=== PATIENT | male | born 1960 | race Caucasian/White ===

== ENCOUNTER 2017-06-20 10:48 | Inpatient (IN) ==
--- NOTE | 2017-06-20 09:50 | Anesthesia Evaluation PreOp ---
Date of Encounter: 06/20/17 Time of Encounter: 11:16 - Past History Planned Operation: Robotic Left Partial Nephrectomy Cardiac History: Denies any Significant Hx Pulmonary History: Denies Any Significant HX [employer] [place] History: Denies Any Significant HX Other Medical History: Renal (renal mass) Anesthesia History: No Prior Anesthetic Complications, Past Anesthesia Alcohol Use: none Drug use: none Medications and Allergies No Known Home Drugs 06/20/17 [History] 3 Allergy/AdvReac Type Severity Reaction Status Date / Time No Known Allergies Allergy Verified 06/16/17 10:40 - Meds/Allergy Pre-op Review Medications Reviewed: Yes Allergies Reviewed: Yes Beta Blockers on Current Med List: No Anesthesia Results - Labs Laboratory Tests 06/16/17 06/16/17 10:51 10:51 WBC 6.3 Hgb 14.8 Hct 44.6 Plt Count 200 Sodium 138 Potassium 4.7 H BUN 15 Creatinine 1.13 Anesthesia Exam O2 Sat Height 1.75 m Height 1.75 m Weight 105.233 kg Weight 105.233 kg O2 Sat by Pulse Oximetry 97 Vital Signs Temp Pulse Resp BP Pulse Ox 98.7 F 74 18 139/98 97 06/20/17 11:05 06/20/17 11:05 06/20/17 11:05 06/20/17 11:05 06/20/17 11:05 Height: 5'9'' Weight: 232 lbs NPO (# of Hours): 8 Pain Scale: 0 Pain Scale Used: Numeric (1 - 10) - HEENT Pupil (Motor): EOMI Mallampati: II Teeth: Normal Oral Opening: Greater than 3 - [employer] [employer] [place] LOC: Oriented [employer] [place] Motor: Normal RUE, Normal LUE, Normal RLE, Normal LLE, Normal Face [employer] [place] Sensory: Normal: RUE, LUE, RLE, LLE, Face - Cardiac Rhythm: Regular Murmur: None - Pulmonary Breath Sounds: bilateral Clear Respiratory Effort: Symmetrical Anesthesia Assess/Plan ASA Score: 2 Modified Caryl Scale for Level of Consciousness: Cooperative, oriented, and tranquil Anesthetic Plan: General Monitoring Plan: Standard Monitors Recovery Plan: PACU
[2017-06-20] MEDS ORDERED: CeFAZolin Pre 2,000 MG/100 ML 2,000 MG/100 ML BAG IVPB ONE (11:43)
[2017-06-20] MEDS ORDERED: Ringers Solution, Lactated 1,000 ML IVC SCH ×2 (11:45→14:45)
[2017-06-20] MEDS ORDERED: Lidocaine -MPF 2% 2 ML VIAL ONE (12:05)
[2017-06-20] MEDS ORDERED: Neostigmine Methylsulfate 3 MG/3 ML SYRINGE ONE (12:05)
[2017-06-20] MEDS ORDERED: Dexamethasone 4 MG/ML VIAL ONE (12:05)
[2017-06-20] MEDS ORDERED: Ondansetron 4 MG/2 ML VIAL ONE (12:05)
[2017-06-20] MEDS ORDERED: *HR* FentaNYL (PF) 100 MCG/2 ML VIAL ONE ×4 (12:05→15:35)
[2017-06-20] MEDS ORDERED: *HR* Rocuronium Bromide 50 MG/5 ML VIAL ONE ×2 (12:05→14:37)
[2017-06-20] MEDS ORDERED: *HR* Propofol 200 MG/20 ML VIAL IVP ONE (12:06)
[2017-06-20] MEDS ORDERED: *HR* Midazolam HCl 2 MG/2 ML VIAL ONE (12:06)
[2017-06-20] MEDS ORDERED: Plasma-Lyte A (PH 7.4) 1,000 ML IVC SCH (12:30)
--- NOTE | 2017-06-20 12:40 | History & Physical Report ---
Date of Encounter: 06/20/17 Time of Encounter: 12:40 24 Hour HP Update - Instructions Instructions: If the History and Physical is less than 30 days old and was completed prior to A.M. admission and or procedure and has NOT been updated on calendar day of procedure please complete this update prior to performing procedure. - Update Patient reports changes in Medical Condition: No Changes in examination, assessment, or condition: No Changes in Medication: No Preop tests/diagnostics Reviewed: Yes Surgery Remains Indicated: Yes Consent for Planned Operative Procedure(s) Verified: Yes - Pre-Operative Checklist Preoperative Checklist Indicated: Yes Prophylactic Antibiotic Ordered: Yes Home Medications Include Beta Alessandra: No Is VTE Prophylaxis Indicated?: Yes
[2017-06-20] MEDS ORDERED: Bupivacaine-MPF 0.25% 10 ML VIAL ONE (12:45)
[2017-06-20] MEDS ORDERED: *HR* Promethazine 25 MG/ML VIAL IVP PRN (14:39)
[2017-06-20] MEDS ORDERED: *HR* Labetalol 20 MG/4 ML SYRINGE IVP PRN (14:39)
[2017-06-20] MEDS ORDERED: Ondansetron 4 MG/2 ML VIAL IVP ONE (14:39)
[2017-06-20] MEDS ORDERED: Mannitol 25% vial 12.5 GM/50 ML VIAL ONE (15:35)
[2017-06-20] MEDS ORDERED: *HR* HYDROmorphone 2 MG/ML SYRINGE ONE (16:29)
--- NOTE | 2017-06-20 17:03 | Operative Note ---
Date of procedure: 06/20/17 Pre-op diagnosis: Left renal mass Post-op diagnosis: same Procedure: Robotic assisted partial nephrectomy converted to nephrectomy Implants: 16 [place] moulton Complications: none Anesthesia: ISAIAHA Surgeon: Otis Pacheco Estimated blood loss (cc): 600 Specimen: left kidney, fat over renal mass Condition: stable Disposition: PACU Procedure in Detail: Indications: Jack is a 56-year-old man who presents with a left renal mass. He elected to undergo a left robotic partial nephrectomy. He was informed of the risks of the procedure which include but are not limited to bleeding, infection, injury to other structures, need for further procedures, urine leak, bowel injury, need for complete nephrectomy, need for open conversion, and the risk of anesthesia. He is willing to proceed. Procedure After informed consent was obtained the patient was brought back to the operating room and placed in the supine position. A timeout was performed. Gen. anesthesia was then administered and an endotracheal tube was placed. Appropriate IV access and arterial lines were obtained. He was then placed in the flank position. His left side was up. All pressure points were padded. He was well secured to the table. A Moulton catheter was placed. He was then prepped and draped in the usual sterile fashion. We then marked out our incision 2 fingerbreadths superior to the umbilicus and 2 fingerbreadths lateral to that. A 10 mm incision was then made. The Veress needle was introduced. 2 clicks were heard. It passed the water drop test. Insufflation was then initiated. Pressures were low consecutively. The abdomen was insufflated. Once the pressure was up to 15, we inserted the 12 mm laparoscopic port with the visual obturator and the 8 mm robotic camera. Entry was obtained into the abdomen. The bowel was surveyed below and there is no evidence of bowel injury. Robotic ports were then inserted inferior and lateral to the camera port and superior to the camera port. A 12 mm port was placed for the metallurgical laboratory assistant inferior to the umbilicus. The robot was docked. The bowel was reflected off the kidney along the white line of Toldt. There was a large amount of fat overlying the kidney. As I reflected the colon medially I did encounter a mesenteric blood vessel that bled. The blood vessel retracted back into the mesenteric fat. I cauterized around it and didn't notice any further bleeding. The mesentery did bleed somewhat throughout the case. The colon was reflected off the spleen. I was able to retract the colon medially and approached the area of the hilum. I identified the renal vein and renal artery and these were dissected out for future clamping. I then turned my attention to the fat overlying the renal mass. This was dissected off the kidney. It was then sent separately. The mass was quite exophytic. The dissection of the fat over top of the kidney did lead to some bleeding. There was a developing hematoma medial to the kidney and this was aspirated away. I then turned my attention to the hilum. It was difficult to identify the location of the previous dissection. In doing so I inadvertently injured the renal vein. I noted bleeding from it and at that point felt it would be best to proceed with a nephrectomy. The robot was undocked. I scrubbed in and extended the incision from the the robotic port which is subcostal and proceeded further subcostally. The subcutaneous tissue was dissected down using electrocautery. I was able to place my finger through the port cycle into the peritoneum. The fascia was then divided with cautery as was the rectus muscle. I entered the abdomen. I then placed the gelport. I inserted my hand into the kidney with a lap. The hematoma was swept away with a lap. I used a total of 4 laps to clear out all the hematoma. I identified the renal vein and saw the laceration which was then profusely bleeding. I inserted the stapler and stapled across the entire hilum. I then reinserted the stapler and took the ureter with it. The kidney was then placed in the specimen bag and removed through the GelPort. I then surveyed the area of the hilum and saw no further bleeding. The area near the mesentery was viewed and I didn't see any other bleeding. At this point I decided to remove the ports and close the wounds. The peritoneum from the GelPort was closed in a running fashion using an 0 Vicryl suture. The fascia was then closed in a running fashion using an 0 Vicryl suture. The skin was closed using Monocryl suture. The wounds were irrigated. Local anesthetic was infiltrated in the wounds. The fascia of the larger 12 mm ports were closed using a 2-0 Vicryl in an interrupted fashion. The skin from the port site wounds were closed using 4-0 Monocryl suture. Dermabond was applied to the wounds. The patient was then awakened from general anesthesia and brought to recovery room in good condition. All sponge, needle, and instrument counts were correct.
[2017-06-20] MEDS: *HR* HYDROmorphone (PF) 1 MG/ML SYRINGE IVP PRN ×4 (17:34→22:03)
--- NOTE | 2017-06-20 18:03 | Anesthesia Evaluation Post Op ---
Date of Encounter: 06/20/17 Time of Encounter: 18:02 - Vital Signs Vital Signs: Last Vital Signs Temp 98.3 F 06/20/17 17:46 Pulse 60 06/20/17 17:56 Resp 14 06/20/17 17:56 BP 128/84 06/20/17 17:56 Pulse Ox 99 06/20/17 17:56 - Lungs Lungs: Clear Ascult./Percussion - Airway Airway: Non-obstructed - Cardiovascular Regular Rate - Mental Status Mental Status: Alert & Oriented, Answers Appropriately - Pain Pain Scale: 3 - Nausea Vomiting Nausea Vomiting: Not Present - Hydration Hydration: NPO - Discharge PostOp Status: Transfer Patient to floor
[2017-06-20] MEDS ORDERED: Ondansetron 4 MG/2 ML VIAL IVP PRN (18:43)
[2017-06-20] MEDS ORDERED: *HR* Promethazine 25 MG/ML VIAL IV PRN (18:43)
[2017-06-20] MEDS ORDERED: Naloxone 0.4 MG/ML INJ IVP PRN (18:43)
[2017-06-20] MEDS ORDERED: Acetaminophen 325 MG TABLET PO PRN (18:43)
[2017-06-20] MEDS: 0.9 % Sodium Chloride 1,000 ML IVC SCH (19:43)
[2017-06-21] MEDS: ceFAZolin 2,000 MG in D5% in Water 100 ML IVPB SCH ×3 (00:39→16:00)
[2017-06-21] MEDS: *HR* HYDROmorphone (PF) 1 MG/ML SYRINGE IVP PRN ×5 (00:40→11:01)
[2017-06-21] MEDS: 0.9 % Sodium Chloride 1,000 ML IVC SCH ×2 (03:30→21:38)
[2017-06-21 06:45] LABS: Calcium 7.9 mg/dL (8.6-10.8); Potassium 5.1 mEq/L (3.5-4.5)
[2017-06-21 06:48] LABS: Basophils % 0.1 %; Hematocrit 33.9 % (37.5-50.1); Immature Granulocytes % 0.1 % (0-4); Lymphocytes # 0.9 K/mcL (0.6-4.6); Lymphocytes % 13.2 %; Mean Corpuscular HGB Conc 32.7 g/dL (31.6-35.5); Mean Corpuscular Hemoglobin 29.6 pg (28.0-33.3); Mean Corpuscular Volume 90.4 fL (83.0-100.0); Mean Platelet Volume 9.7 fL (9.4-12.4); Monocytes % 14.6 %; Neutrophils # 4.9 K/mcL (1.6-8.9); Platelet Count 190 K/mcL (140-400); Red Blood Count 3.75 M/mcL (4.19-5.50); Red Cell Distribution Width 11.9 % (11.5-14.5)
--- NOTE | 2017-06-21 07:40 | Urology Progress Note ---
Date of Encounter: 06/21/17 Time of Encounter: 07:38 - Assessment and Plan (1) Renal mass, left Current Visit: Yes Status: Acute Assessment and plan: 56-year-old man status post left laparoscopic nephrectomy. Postop day #1. 1. We'll follow-up on H&H today. 2. Ambulate 3 times a day. 3. Clear liquid diet. 4. PT OT consult. 5. Patient informed of the events of surgery and all questions were answered. Progress Note Narrative: 56-year-old man status post attempted left robotic-assisted partial nephrectomy which was complicated by a renal vein injury. This led to removal of the entire left kidney. He says he is doing fairly well today. He is having some pain. The pain is controlled with the pain medication. He is breathing well. He denies any chest pain. Urine output has been adequate. Objective Initial Vital Signs Temp Pulse Resp BP Pulse Ox 98.7 F 74 18 139/98 97 06/20/17 11:05 06/20/17 11:05 06/20/17 11:05 06/20/17 11:05 06/20/17 11:05 - General physical appearance Present: well developed, well nourished, no distress - Respiratory Present: normal respiratory effort - Abdomen Present: soft, tender (Appropriately tender. Incisions are clean and dry and intact.) - Genitourinary Urine Appearance: Present: Clear - Labs 06/21/17 06:16 Diabetes panel 06/21/17 Range/Units 06:16 Sodium 137 (136-145) mEq/L Potassium 5.1 H (3.5-4.5) mEq/L Chloride 106 (98-109) mEq/L Carbon Dioxide 23 (19-29) mEq/L BUN 16 (8-26) mg/dL Creatinine 1.55 H (0.72-1.25) mg/dL Glucose 155 H (70-99) mg/dL Calcium 7.9 L (8.6-10.8) mg/dL Calcium panel 06/21/17 Range/Units 06:16 Calcium 7.9 L (8.6-10.8) mg/dL Pituitary panel 06/21/17 Range/Units 06:16 Sodium 137 (136-145) mEq/L Potassium 5.1 H (3.5-4.5) mEq/L Chloride 106 (98-109) mEq/L Carbon Dioxide 23 (19-29) mEq/L BUN 16 (8-26) mg/dL Creatinine 1.55 H (0.72-1.25) mg/dL Glucose 155 H (70-99) mg/dL Calcium 7.9 L (8.6-10.8) mg/dL Adrenal panel 06/21/17 Range/Units 06:16 Sodium 137 (136-145) mEq/L Potassium 5.1 H (3.5-4.5) mEq/L Chloride 106 (98-109) mEq/L Carbon Dioxide 23 (19-29) mEq/L BUN 16 (8-26) mg/dL Creatinine 1.55 H (0.72-1.25) mg/dL Glucose 155 H (70-99) mg/dL Calcium 7.9 L (8.6-10.8) mg/dL - VTE Documentation of Mechanical Device: Intermittent pneumatic compression device Consult Discharge Plan - Plan [facility]errals: [facility] [Primary Care Provider[facility] -
[2017-06-21 09:13] LABS: Hemoglobin 11.1 g/dL (12.9-16.9)
[2017-06-21] MEDS ORDERED: Bisacodyl 10 MG RECTAL SUPPOSITORY RC PRN (11:52)
[2017-06-21] MEDS: *HR* OxyCODONE Immed Rel 5 MG TABLET PO PRN ×2 (14:45→18:49)
[2017-06-22] MEDS: *HR* OxyCODONE Immed Rel 5 MG TABLET PO PRN (04:13)
[2017-06-22] MEDS: 0.9 % Sodium Chloride 1,000 ML IVC SCH (04:59)
[2017-06-22 05:56] LABS: Basophils % 0.1 %; Eosinophils % 0.1 %; Hematocrit 30.6 % (37.5-50.1); Immature Granulocytes % 0.3 % (0-4); Lymphocytes % 12.8 %; Mean Corpuscular HGB Conc 32.7 g/dL (31.6-35.5); Mean Corpuscular Hemoglobin 29.6 pg (28.0-33.3); Mean Corpuscular Volume 90.5 fL (83.0-100.0); Mean Platelet Volume 9.7 fL (9.4-12.4); Monocytes # 0.9 K/mcL (0.0-1.3); Monocytes % 11.9 %; Neutrophils # 5.9 K/mcL (1.6-8.9); Platelet Count 162 K/mcL (140-400); Red Blood Count 3.38 M/mcL (4.19-5.50); Red Cell Distribution Width 11.8 % (11.5-14.5); Segmented Neutrophils % 74.8 %
[2017-06-22 06:17] LABS: Calcium 8.3 mg/dL (8.6-10.8)
[2017-06-22 06:19] LABS: Potassium 3.8 mEq/L (3.5-4.5)
--- NOTE | 2017-06-22 07:18 | Urology Progress Note ---
Date of Encounter: 06/22/17 Time of Encounter: 07:16 - Assessment and Plan (1) Renal mass, left Current Visit: Yes Status: Acute Assessment and plan: Status post left laparoscopic nephrectomy. Postoperative day #2. 1. Continue ambulating 3 times per day. 2. Hemoglobin drifted down to 10 today from 11.1. Vital signs have been stable. We'll continue to monitor. 3. He had a low-grade temperature. I encouraged incentive spirometry. 4. Continue clear liquid diet for now. 5. I'll change IV fluids to maintenance fluids. 6. Continue inpatient stay. 7. SCDs for DVT prophylaxis. Progress Note Narrative: Postop day 2 status post left laparoscopic nephrectomy. He feels his pain is better controlled today. He denies flatus. He is urinating well. He is ambulating. He feels somewhat distended. Objective Initial Vital Signs Temp Pulse Resp BP Pulse Ox 98.7 F 74 18 139/98 97 06/20/17 11:05 06/20/17 11:05 06/20/17 11:05 06/20/17 11:05 06/20/17 11:05 - General physical appearance Present: well developed, well nourished, no distress - Respiratory Present: normal respiratory effort (distended, incisions are c,d,i. appropriately tender) - Labs 06/22/17 05:27 06/22/17 05:27 Diabetes panel 06/22/17 Range/Units 05:27 Sodium 137 (136-145) mEq/L Potassium 3.8 D (3.5-4.5) mEq/L Chloride 105 (98-109) mEq/L Carbon Dioxide 23 (19-29) mEq/L BUN 15 (8-26) mg/dL Creatinine 1.59 H (0.72-1.25) mg/dL Glucose 144 H (70-99) mg/dL Calcium 8.3 L (8.6-10.8) mg/dL Calcium panel 06/22/17 Range/Units 05:27 Calcium 8.3 L (8.6-10.8) mg/dL Pituitary panel 06/22/17 Range/Units 05:27 Sodium 137 (136-145) mEq/L Potassium 3.8 D (3.5-4.5) mEq/L Chloride 105 (98-109) mEq/L Carbon Dioxide 23 (19-29) mEq/L BUN 15 (8-26) mg/dL Creatinine 1.59 H (0.72-1.25) mg/dL Glucose 144 H (70-99) mg/dL Calcium 8.3 L (8.6-10.8) mg/dL Adrenal panel 06/22/17 Range/Units 05:27 Sodium 137 (136-145) mEq/L Potassium 3.8 D (3.5-4.5) mEq/L Chloride 105 (98-109) mEq/L Carbon Dioxide 23 (19-29) mEq/L BUN 15 (8-26) mg/dL Creatinine 1.59 H (0.72-1.25) mg/dL Glucose 144 H (70-99) mg/dL Calcium 8.3 L (8.6-10.8) mg/dL - VTE Documentation of Mechanical Device: Intermittent pneumatic compression device Consult Discharge Plan - Plan Referrals: Otis Pacheco MD [Partnered Physician] - [facility] [Primary Care Provider[facility] -
[2017-06-22] MEDS: *HR* HYDROmorphone (PF) 1 MG/ML SYRINGE IVP PRN ×4 (08:11→17:49)
[2017-06-22] MEDS: D5% in 0.45% NACL w KCl 20 MEQ/1,000 ML MLS IVC SCH ×2 (08:11→15:45)
[2017-06-22] MEDS ORDERED: D5% in 0.45% NACL w KCl 20 MEQ/1,000 ML MLS IVC SCH (17:49)
[2017-06-23 05:21] LABS: Basophils % 0.3 %; Eosinophils # 0.1 K/mcL (0.0-0.6); Eosinophils % 1.4 %; Hematocrit 28.7 % (37.5-50.1); Hemoglobin 9.8 g/dL (12.9-16.9); Immature Granulocytes % 0.9 % (0-4); Lymphocytes # 0.9 K/mcL (0.6-4.6); Lymphocytes % 15.4 %; Mean Corpuscular HGB Conc 34.1 g/dL (31.6-35.5); Mean Corpuscular Hemoglobin 30.8 pg (28.0-33.3); Mean Corpuscular Volume 90.3 fL (83.0-100.0); Mean Platelet Volume 9.5 fL (9.4-12.4); Monocytes # 0.6 K/mcL (0.0-1.3); Monocytes % 10.7 %; Neutrophils # 4.1 K/mcL (1.6-8.9); Platelet Count 141 K/mcL (140-400); Red Blood Count 3.18 M/mcL (4.19-5.50); Red Cell Distribution Width 11.9 % (11.5-14.5); Segmented Neutrophils % 71.3 %
[2017-06-23 05:38] LABS: BUN/Creatinine Ratio 9 (6-26); Blood Urea Nitrogen 12 mg/dL (8-26); Calcium 8.9 mg/dL (8.6-10.8); Carbon Dioxide 25 mEq/L (19-29); Chloride 106 mEq/L (98-109); Glucose 145 mg/dL (70-99); Osmolality,Calculated 292 (280-300); Phosphorous 1.3 mg/dL (2.3-4.7); Sodium 140 mEq/L (136-145); eGFR For African Americans > 60 (> 60); eGFR For Non-African Americans 54 (> 60)
--- NOTE | 2017-06-23 07:12 | Urology Progress Note ---
Date of Encounter: 06/23/17 Time of Encounter: 07:10 - Assessment and Plan (1) Renal mass, left Current Visit: Yes Status: Acute Assessment and plan: Postop day #3 status post left laparoscopic nephrectomy. 1. Advance diet to full liquids. 2. Continue ambulation. 3. H&H is stable. Electrolytes are okay. 4. Continue maintenance fluids. 5. Pathology is pending. 6. SCDs for DVT prophylaxis. Progress Note Narrative: 56-year-old man status post left nephrectomy postoperative day #3. His pain is well controlled today. He reports he is passing gas. He still feels early satiety. She is ambulating well. He is urinating well. Objective Initial Vital Signs Temp Pulse Resp BP Pulse Ox 98.7 F 74 18 139/98 97 06/20/17 11:05 06/20/17 11:05 06/20/17 11:05 06/20/17 11:05 06/20/17 11:05 - General physical appearance Present: well developed, well nourished, no distress - Respiratory Present: normal respiratory effort - Abdomen Present: soft (Distention improved. Incisions are clean and dry and intact.) - Labs 06/23/17 05:03 06/23/17 05:03 Diabetes panel 06/23/17 Range/Units 05:03 Sodium 140 (136-145) mEq/L Potassium 4.0 (3.5-4.5) mEq/L Chloride 106 (98-109) mEq/L Carbon Dioxide 25 (19-29) mEq/L BUN 12 (8-26) mg/dL Creatinine 1.38 H (0.72-1.25) mg/dL Glucose 145 H (70-99) mg/dL Calcium 8.9 (8.6-10.8) mg/dL Calcium panel 06/23/17 Range/Units 05:03 Calcium 8.9 (8.6-10.8) mg/dL Phosphorus 1.3 L (2.3-4.7) mg/dL Pituitary panel 06/23/17 Range/Units 05:03 Sodium 140 (136-145) mEq/L Potassium 4.0 (3.5-4.5) mEq/L Chloride 106 (98-109) mEq/L Carbon Dioxide 25 (19-29) mEq/L BUN 12 (8-26) mg/dL Creatinine 1.38 H (0.72-1.25) mg/dL Glucose 145 H (70-99) mg/dL Calcium 8.9 (8.6-10.8) mg/dL Adrenal panel 06/23/17 Range/Units 05:03 Sodium 140 (136-145) mEq/L Potassium 4.0 (3.5-4.5) mEq/L Chloride 106 (98-109) mEq/L Carbon Dioxide 25 (19-29) mEq/L BUN 12 (8-26) mg/dL Creatinine 1.38 H (0.72-1.25) mg/dL Glucose 145 H (70-99) mg/dL Calcium 8.9 (8.6-10.8) mg/dL - VTE Documentation of Mechanical Device: Intermittent pneumatic compression device Consult Discharge Plan - Plan Referrals: Otis Pacheco MD [Partnered Physician] - [facility] [Primary Care Provider] -
[2017-06-23] MEDS: *HR* HYDROmorphone (PF) 1 MG/ML SYRINGE IVP PRN ×2 (07:57→12:07)
[2017-06-24 06:58] VITALS: BP 118/74
--- NOTE | 2017-06-24 07:20 | Discharge Summary ---
Date of Encounter: 06/24/17 Time of Encounter: 07:17 - Discharge Diagnosis (1) Renal mass, left Priority: Primary Status: Acute - Discharge Medications Prescriptions: Docusate [Colace] 100 mg PO BID #60 capsule Oxycodone HCl/Acetaminophen [Percocet 5-325 mg Tablet] 1 each PO Q6H PRN #25 tablet PRN Reason: Pain Home Medications: Docusate [Colace] 100 mg PO BID #60 capsule 06/24/17 [Rx] Oxycodone HCl/Acetaminophen [Percocet 5-325 mg Tablet] 1 each PO Q6H PRN #25 tablet 06/24/17 [Rx] Allergies/Adverse Reactions: 3 Allergy/AdvReac Type Severity Reaction Status Date / Time No Known Allergies Allergy Verified 06/16/17 10:40 Date of admission: 06/21/17 07:41 Primary care physician: PCP [place] Consults: 06/21/17 07:41 Consult to Occupational Therapy [CONS] Routine Comment: Evaluate, develop and implement POC Reason for Consult: Post op nephrectomy. Consult to Physical Therapy [CONS] Routine Comment: Evaluate, develop and implement POC Reason for Consult: Postop nephrectomy. Assist with ambulation. Discharging clinician: Otis Pacheco Anticipated date of discharge: 06/24/17 - Patient Status Disposition: Home, Self-Care Condition: Fair Functional capacity at discharge: independent ambulation Overall status at discharge: patient is progressing back to baseline - Discharge Instructions Follow Up With: Otis Pacheco MD [Partnered Physician] - (Dr. Pacheco in 2 weeks for postoperative check.) Additional Instructions: 1. No heavy lifting greater than 20 pounds x2 weeks. 2. No tub baths x2 weeks. 3. May shower. 4. He should follow up in 2 weeks for postoperative check. 5. He should return for any fevers, chills, nausea, vomiting, or significant swelling/ecchymosis. - Diet and Activity Activity: increase activity as tolerated Diet: advance to your usual diet - Hospital Course Hospital course: Mr. Mcallister is a 56 year old male underwent an attempt at a left robotic-assisted partial nephrectomy on June 20, 2017 which resulted in a renal vein injury. At that point a nephrectomy was performed. After a short stay in the recovery room he was brought to the hospital joshi. His pain was adequately controlled with a combination of oral and IV pain medication. As his bowel function returned, his diet was advanced. He had good urine output throughout his stay. On postoperative day #4, he was discharged home. His pain was well- controlled that point and he was tolerating general diet. - Time Spent with Patient Total time spent providing and/or coordinating discharge services: Less than 30 minutes Exam Initial Vital Signs Temp Pulse Resp BP Pulse Ox 98.7 F 74 18 139/98 97 06/20/17 11:05 06/20/17 11:05 06/20/17 11:05 06/20/17 11:05 06/20/17 11:05 - General physical appearance Present: well developed, well nourished, no distress - Eyes Absent: icteric - ENT Present: normal nares - Neck Present: trachea midline - Respiratory Present: normal respiratory effort - Cardiovascular Cardiovascular exam IM: RRR - Abdomen Abdomen: Present: soft (Incisions are clean and dry and intact. Pain is appropriate.) - VTE Documentation of Mechanical Device: Intermittent pneumatic compression device
--- NOTE | 2017-06-24 10:07 | Physician Discharge Referral ---
Home Health/Hosp Referral Info Transfer to: Home Health Provider in Charge Post Discharge: PCP - Diagnosis (1) Renal mass, left Priority: Primary Status: Acute - Respiratory Orders Smoking Cessation: Smoking cessation has been advised. For more information, call the [place] Tobacco Quit Line at 2-601-WCBO-NOW. - Diet/Nutrition Diet/Nutrition Orders: Regular - Activity Activity Orders: Up ad jayden - Services Needed Following services are medically necessary services: Occupational Therapy - Transfer Medications Prescriptions: Docusate [Colace] 100 mg PO BID #60 capsule Oxycodone HCl/Acetaminophen [Percocet 5-325 mg Tablet] 1 each PO Q6H PRN #25 tablet PRN Reason: Pain Home Medications: Docusate [Colace] 100 mg PO BID #60 capsule 06/24/17 [Rx] Oxycodone HCl/Acetaminophen [Percocet 5-325 mg Tablet] 1 each PO Q6H PRN #25 tablet 06/24/17 [Rx] Allergies/Adverse Reactions: 3 Allergy/AdvReac Type Severity Reaction Status Date / Time No Known Allergies Allergy Verified 06/16/17 10:40 Certification: Further, I certify that my clinical findings support that this patient is homebound (i.e. absences from home require considerable and taxing effort and are for medical reasons or yarsanism services or infrequently or short duration when for other reasons) because: Homebound Reason: Post-surgery restriction and or conditions limit ability to leave home Attestation: My signature below is to certify that this patient is under my care and that I, or nurse practitioner, or a physician's clinical lab assistant working with me, has a face-to -face encounter with this patient.
== END 2017-06-24 14:18 | disposition home or self-care (01) | DRG 657 ==
LOC: SAMDAY 10:48 → 3ANU 18:28
PROVIDERS: ADMIT Urology; ATTEND Urology